=== PATIENT | male | born 1985 | race Caucasian/White ===

== ENCOUNTER 2020-03-10 23:19 | Emergency (ER) | payer OTHER, SELFPAY ==
[~2020-03-10] VITALS: Ht 170.2 cm; Wt 117.9 kg
[2020-03-10 23:24] VITALS: Ht 170.2 cm; Wt 117.9 kg
[2020-03-11 00:12] VITALS: BP 151/92
== END 2020-03-11 00:12 | disposition home or self-care (01) ==
LOC: ED 23:19
DX: U07.1 COVID-19 (principal)
CPT/HCPCS: U0003